=== PATIENT | male | born 1975 | race Caucasian/White ===

== ENCOUNTER 2022-08-26 16:36 | Emergency (ER) | payer BC, OTHER, SELFPAY ==
[2022-08-26 16:45] VITALS: BP 152/99; PULSE 74; RESP 18; O2SAT 98
[2022-08-26 16:47] VITALS: BP 152/99; PULSE 72; RESP 14; TEMP 36.8; O2SAT 99; BMI 30.9
--- NOTE | 2022-08-26 17:07 | [facility].EDGENADL ---
Discharge Plan Disposition Patient Disposition: Home, Self-Care Prescriptions Prescriptions: New cephalexin 500 mg capsule 500 mg PO QID 5 Days Qty: 20 0RF Referrals Follow up/Referrals: Sami Forrest MD [Primary Care Provider] - See instructions Activity Restrictions/Add. Instructions Additional Instructions/Restrictions: Wound care as discussed. Have your sutures removed in 7 to 10 days. Clinical Impressions Clinical Impression: Finger laceration, Contact with chainsaw as cause of accidental injury Instructions Patient Instructions: DI for Laceration Repair Discharge ED Provider: Randee Fuentes General Adult HPI General Chief complaint: Wound/Laceration Stated complaint: [id number] 15:15 lac left little finger Time Seen by Provider: 08/26/22 17:07 Mode of Arrival: Ambulatory Source of Information: Patient Limitations: No Limitations Description of Symptoms (Recalled from ER Triage Doc. by RN): Pt reports chainsaw kicked back and hit left fifth digit History of Present Illness HPI narrative: Patient is a 46-year-old male presents with a chainsaw injury to the lateral aspect of his left fifth digit. States that he was using a chainsaw with 1 arm and it kicked back and struck the ulnar aspect of his left fifth digit. States he still has complete ability to flex extend has normal sensation no loss of color or feeling. Pain is moderate. Related Data Previous Rx's Medication Instructions Recorded cephalexin 500 mg capsule 500 mg PO QID 5 days #20 caps 08/26/22 Allergies Allergy/AdvReac Type Severity Reaction Status Date / Time No Known Allergies Allergy Verified 08/26/22 16:50 [facility] Disclaimer: The information contained in this section may have been updated after the patient was seen, as this information can be updated by other users. Social History Smoking Status: Never smoker alcohol intake: never current occupational status: other Travel in the last 8 weeks: None ROS Obtained: Yes All systems reviewed & no additional complaints except as documented Physical Exam General General appearance: alert and in no apparent distress Head Head exam: atraumatic and normocephalic Respiratory Respiratory exam: Present normal lung sounds bilaterally; Absent respiratory distress, wheezes or stridor Cardiovascular Cardiovascular exam: Present regular rate Extremities Exam Extremities exam: Present other (Left distal interphalangeal joint on the ulnar aspect there is a 2 cm jagged wound extending across the joint lines actively bleeding neurovascular intact distal FDS FDP intact extensor tendon intact) Neurological Exam Neurological exam: Present alert and oriented X3 Medical Decision Making Kevyn Inquiry Pt receiving controlled substance: No Vital Signs: 08/26/22 16:47 08/26/22 16:45 Temperature 98.2 F Temperature Source Oral Pulse Rate 74 Pulse Rate [Right Radial] 72 Respiratory Rate 14 18 Blood Pressure 152/99 H Blood Pressure [Right Arm] 152/99 H Blood Pressure Mean 107 Blood Pressure Mean [Right Arm] 116 Blood Pressure Source [Right Arm] Automatic Cuff Blood Pressure Position [Right Arm] Sitting 02 Sat by Pulse Oximetry 99 98 Oxygen Delivery Method Room Air Orders (Tests/Meds): ED MEDICATIONS Discontinued Medications Generic Name Dose Route Start Last Admin Trade Name Freq PRN Reason Stop Dose Admin Tetanus/Reduced Diphtheria/Acell Pertussis 0.5 ml 08/26/22 16:50 08/26/22 17:31 Tet/Diphth/Pert-Adult 0.5ml Syringe IM 08/26/22 16:51 0.5 ml .ONCE ONE Administration Medical Decision Narrative: Patient's finger was extensively irrigated and sewn up using sutures please see procedure note. Its unlikely that he has bony involvement discussed with him possibility of getting an x-ray or just treating prophylactically with oral antibiotics we chose to treat her with oral antibiotics. No foreign bodies noted with the bloodless
[2022-08-26 17:45] VITALS: BP 120/80; PULSE 75; RESP 14; TEMP 37; O2SAT 99
== END 2022-08-26 17:46 | disposition home or self-care (01) ==
PROVIDERS: Emergency Provider Student in an Organized Health Care Education/Training Program; PCP Internal Medicine Adolescent Medicine
DX: S61.217A Laceration without foreign body of left little finger without damage to nail, initial encounter (principal); W29.3XXA Contact with powered garden and outdoor hand tools and machinery, initial encounter; Z23 Encounter for immunization
CPT/HCPCS: 12002; 90471; 90715; 99283; 99284